=== PATIENT | male | born 1970 | race Caucasian/White ===

== ENCOUNTER 2019-02-11 22:19 | Inpatient (IN) | payer OTHER ==
[2019-02-11] MEDS ORDERED: SODIUM CHLORIDE 0.9% 500 ML INFUS.BAG IV ONE (22:33)
--- NOTE | 2019-02-11 22:43 | PDOC ---
History of Present Illness - General Chief Complaint: Weakness Stated Complaint: FEVER/WEAKNESS Time Seen by Provider: 02/11/19 22:43 History Source: Patient, Family, Significant Other - History of Present Illness Initial Comments: 02/12/19 01:25 Mr. Michelle is a 48 y/o [place]ander speaking man with hx pre-diabetes p/w acute onset fevers, diaphoresis, confusion. He is accompanied by his significant other and his daughter. They reports that yesterday he was his normal self, but began to complain of a sore throat overnight. They report that he was febrile at that time, but otherwise well appearing. Today they report that he appeared to acutely worsen, appearing diaphoretic and weak. While here in the ED they report that he became acutely confused, attempting to get out of bed while unable to verbalize why. He was unable to provide history secondary to AMS. 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 His family denies any similar episodes or illness in the past. They deny any known drug allergies. They deny any history of alcohol or drug use. Past History - Past Medical History Allergies/Adverse Reactions: Allergies Allergy/AdvReac Type Severity Reaction Status Date / Time No Known Allergies Allergy Verified 02/11/19 22:40 Home Medications: Ambulatory Orders No Home Medications 0 dose .ROUTE UTDICT 11/23/13 COPD: No - Psycho Social/Smoking Cessation Hx Smoking History: Never smoked Review of Systems - Review of Systems Able to Perform ROS?: No (AMS) *Physical Exam - Vital Signs Last Vital Signs Temp Pulse Resp BP Pulse Ox 101.1 F H 164 H 20 111/60 97 02/11/19 22:37 02/11/19 22:37 02/11/19 22:37 02/11/19 22:37 02/11/19 22:37 - Physical Exam Comments: 02/12/19 01:20 PE: GENERAL: Awake, diffusely diaphoretic. Disoriented to persons, place, and time, but responds incoherently to verbal stimulus. HEAD: No signs of trauma, normocephalic, atraumatic EYES: PERRLA, EOMI, sclera anicteric, conjunctiva clear ENT: Auricles normal inspection, hearing grossly normal, nares patent, oropharynx clear without exudates. Moist mucosa NECK: Normal ROM, supple, no lymphadenopathy, JVD, or masses LUNGS: No distress, speaks full sentences, clear to auscultation bilaterally HEART: Regular rate and rhythm, normal S1 and S2, no murmurs, rubs or gallops, peripheral pulses normal and equal bilaterally. ABDOMEN: Soft, nontender, normoactive bowel sounds. No guarding, no rebound. No masses EXTREMITIES : Normal inspection, Normal range of motion, no edema. No clubbing or cyanosis NEUROLOGICAL: No focal sensorimotor deficits SKIN: Diaphoretic, normal turgor, no rashes or lesions noted Procedures - Consent Consent obtained: Written - Lumbar Puncture Indication: Meningitis, AMS, Fever, Encephalitis CT Scan: Yes Betadine Prep: Yes Position: Left lateral decubitus Site: L3-L4 Local Anesthesia: 1% Lidocaine with epi Lumbar Puncture Kit: Adult Complications: other (unsuccessful) ED Treatment Course - LABORATORY CBC & Chemistry Diagram: 02/11/19 23:00 02/11/19 23:00 Medical Decision Making - Medical Decision Making 02/12/19 01:09 48M with hx prediabetes p/w acute onset fevers, diaphoresis, AMS, fever, tachycardia concerning for meningitis. Differential includes other sources of sepsis, including pneumonia, blood, urine. Plan: Sepsis order set: CBC CMP UA Urine culture CXR Cardiac profile EKG Blood cultures Lactate 1L IV NS Acetaminophen 1g Lumbar puncture Dispo: Admit --- Lactate - 6.9 --- LP discussed with family, reviewed risks and benefits of the procedure. Consent form signed for the LP. LP attempted alongside Dr. Garcia. Patient cleaned, draped appropriately, positioned in L decubitus, knees elevated with back arched forward and chin to chest. Space palpated at L4 region, site anesthetized with 1% lidocaine. Needle entered into spinal space, no return of CSF. Procedure attempted at space L3, no return of CSF. Plan for empiric antiviral and abx coverage. Patient microblogged for inpatient admission. Discharge - Discharge Information Problems reviewed: Yes Clinical Impression/Diagnosis: Delirium Sepsis Qualifiers: Sepsis type: sepsis due to unspecified organism Sepsis acute organ dysfunction status: unspecified Qualified Code(s): A41.9 - Sepsis, unspecified organism Condition: Guarded - Admission Yes - Follow up/Referral - Patient Discharge Instructions - Post Discharge Activity
--- NOTE | 2019-02-11 22:46 | PDOC ---
Attending Attestation - Resident Resident Name: Tate Francisco - ED Attending Attestation I have performed the following: I have examined & evaluated the patient, The case was reviewed & discussed with the resident, I agree w/resident's findings & plan - HPI HPI: 02/11/19 22:57 48 YOM with h/o prediabetes presenting with fever/AMS. yesterday night, +sore throat and fever worsening fever today, AMS/confusion, sweats, generalized weakness and malaise. PCP: Dr Ordonez 02/12/19 01:15 - Physicial Exam PE: 02/11/19 22:58 Agree with the resident's HPI and PE as documented in the electronic medical record. malaised appearing, disoriented (not oriented to person/time/place/situation), EOMI, PERRL, dry membranes. nl conjunctiva, anicteric; normal phonation, oropharynx clear. no exudates. neck supple. lungs clear,+tachycardic. abdomen soft nontender. Back nontender. WINN x4, no focal neuro deficits. No peripheral edema. normal color for ethnicity, WWP. no rash 02/12/19 01:16 02/12/19 17:05 - Critical Care Time Total Critical Care Time: 30 (sepsis, AMS) Critical Care Statement: The care of this patient involved high complexity decision making to prevent further life threatening deterioration of the patient 's condition and/or to evaluate & treat vital organ system(s) failure or risk of failure. - Medical Decision Making 02/11/19 22:45 See HPI for details. Prior notes reviewed, including admissions, discharges and consultations. Vital signs reviewed, +fever/tachycardia maintaining airway. Vital Signs Temp Pulse Resp BP Pulse Ox 101.1 F H 164 H 20 111/60 97 02/11/19 22:37 02/11/19 22:37 02/11/19 22:37 02/11/19 22:37 02/11/19 22:37 DDX bacteremia, meningitis, encephalitis, herpes, pna, UTI, dehydration, viral syndrome, ICH/BOOM MAN mass, electrolyte/metabolic derangements. laboratory results and imaging reviewed, basic labs and lytes wnl, notable for + lactic acidosis 6, will repeat after fluids. UA_unremarkable CXR_neg Cardiac panel_neg EKG sinus tachycardia at 123 bpm, narrow QRS, ST and T wave segments and morphology normal. Nonspecific T wave abnormalities - rate related CT head unremarkable, no acute bleed/mass strep/throat culture influenza/RSV pending ED course -interventions: IVF, hydration. attempted LP with resident, see note. unsuccessful, spinal space deeper than 3.5 inch needle did get in intervertebral space, but no CSF return no bleeding complications defer further attempts, as no long needle available. may need IR for CSF/tap in mean time, given possibility of meningitis/encephalitis, IV ceftriaxone/ vancomycin/valcyclovir administered blood and urine culture pending. VS rechecked, fever downtrending, tachy down admit to hospitalist service for sepsis/AMS/delirium, ?meningitis vs encephalitis, empirically treating. tele monitor s/o Dr Valera for symphony admission. 02/12/19 01:59 02/12/19 17:05
[2019-02-11] MEDS ORDERED: ACETAMINOPHEN 1000 MG/100 ML VIAL (NON FORMULARY) IVPB ONE (22:53)
[2019-02-11 23:06] LABS: VENOUS PH 7.46 (7.31-7.41)
[2019-02-11 23:07] LABS: BASO % 0.3 % (0-2.0); HEMATOCRIT 47.1 % (35.4-49); HEMOGLOBIN 16.4 GM/dL (11.7-16.9); LYMPH % 25.9 % (8-40); MCH 31.7 pg (25.7-33.7); MCHC 34.8 g/dl (32.0-35.9); MEAN CELL VOLUME 91.1 fl (80-96); MEAN PLT VOLUME 8.6 fl (7.5-11.1); MONO % 1.2 % (3.8-10.2); NEUT % 72.6 % (42.8-82.8); PLATELET COUNT 142 K/MM3 (134-434); RBC 5.17 M/mm3 (4.00-5.60); RDW 13.7 % (11.9-15.9); WHITE BLOOD COUNT 9.7 K/mm3 (4.0-10.0)
[2019-02-11] MEDS ORDERED: ACETAMINOPHEN INJECTION 100 ML IVPB ONE (23:10)
[2019-02-11 23:20] LABS: INR 1.3 (0.83-1.09); PROTHROMBIN TIME (PATIENT) 15.4 SEC (9.7-13.0)
[2019-02-11 23:22] LABS: ACTIVATED PTT 34.9 SECONDS (25.2-36.5)
[2019-02-11 23:39] LABS: ALBUMIN 3.6 g/dl (3.4-5.0); BILIRUBIN,TOTAL 2.3 mg/dL (0.2-1); BLOOD UREA NITROGEN 19.9 mg/dL (7-18); CALCIUM 8.5 mg/dL (8.5-10.1); CREATININE 1.8 mg/dL (0.55-1.3); TOT PROT 7.6 g/dl (6.4-8.2)
[2019-02-12] MEDS ORDERED: LIDOCAINE HCL 2% (20ML MULTI-DOSE VIAL) NR ONE (00:36)
[2019-02-12] MEDS ORDERED: ACYCLOVIR 500 MG (50MG/ML) VIAL IVPUSH ONE (01:05)
[2019-02-12] MEDS ORDERED: VANCOMYCIN HCL 2,000 MG in DEXTROSE 5%-WATER - 500 ML IVPB ONE (01:05)
[2019-02-12] MEDS ORDERED: ACYCLOVIR INJECTION 750 MG in DEXTROSE 5%-WATER - 250 ML IVPB ONE (01:30)
[2019-02-12] MEDS ORDERED: cefTRIAXone 2 GM/100 ML BAG (PRE-DOCKED) IVPB ONE (01:30)
[2019-02-12] MEDS ORDERED: SODIUM CHLORIDE 0.9% 500 ML INFUS.BAG IV ONE (01:40)
--- NOTE | 2019-02-12 03:01 | PN ---
Teaching Attending Note Name of Resident: Priyanka Villa ATTENDING PHYSICIAN STATEMENT I saw and evaluated the patient. I reviewed the resident's note and discussed the case with the resident. I agree with the resident's findings and plan as documented. SUBJECTIVE: 48 y/o male from [place] with DM, uncontrolled hyperglycemia c/o fever, chills x1 day, mentioned left neck pain which has been worsening for the several days. He denied any sick contacts, recent travels. He reports dental cleaning procedure about 5 months ago. Denied an invasive procedures such as drilling or tooth extraction. Pt denied any photophobia or photophonia. There was some concern that was confused in ER and LP was attempted unsuccessfully. He received empiric rx for menignitis/encephalitis - vanco, ceftriaxone, acyclovir. OBJECTIVE: Last Vital Signs Temp Pulse Resp BP Pulse Ox 99.0 F 101 H 20 102/69 96 02/12/19 02:29 02/12/19 02:29 02/11/19 23:36 02/12/19 02:29 02/12/19 02:32 general- nontoxic heent- possible uvula deviation to right, left sided erythema neck -exquisite tenderness on left neck, unable to bend head forward due to neck tenderness cv-s1+s2+rrr chest clear abdomen soft ext- no pedal edema neuro -negative meningeal signs- sammy castorena (-) Abnormal Lab Results 02/11/19 02/11/19 02/11/19 23:00 23:00 23:00 Monocytes % 1.2 L D PT with INR INR VBG pH POC VBG pCO2 VBG HCO3 VBG O2 Sat (Johny) VBG Base Excess Carbon Dioxide 17 L BUN 19.9 H Creatinine 1.8 H Random Glucose 209 H Lactic Acid 6.9 H* Total Bilirubin 2.3 H AST 57 H ALT 70 H Urine Protein Urine Ketones Urine Blood Urine Bilirubin 02/11/19 02/11/19 02/12/19 23:00 23:00 00:00 Monocytes % PT with INR 15.40 H INR 1.30 H VBG pH 7.46 H POC VBG pCO2 24.0 L VBG HCO3 16.7 L VBG O2 Sat (Johny) 86.9 H VBG Base Excess -4.8 L Carbon Dioxide BUN Creatinine Random Glucose Lactic Acid Total Bilirubin AST ALT Urine Protein 2+ H Urine Ketones Trace H Urine Blood 3+ H Urine Bilirubin 1+ H 02/12/19 01:28 Monocytes % PT with INR INR VBG pH POC VBG pCO2 VBG HCO3 VBG O2 Sat (Johny) VBG Base Excess Carbon Dioxide BUN Creatinine Random Glucose Lactic Acid 2.4 H* Total Bilirubin AST ALT Urine Protein Urine Ketones Urine Blood Urine Bilirubin imaging studies reviewed ASSESSMENT AND PLAN: 48yo man with severe sepsis, high fever, tachycardia, high lactic acidosis, transaminitis, HAGMA. Due to unilaterally tender neck I suspect possible submandibular abscess. DOcumented AMS, suspected meningeal involvement in ER. Unable to perform CT of neck with contrast due to GERALD. Unsuccessful LP attempt. Possible meningitis however on my exam not suggestive. Patient seemed to have improved clinically with empiric antimicrobial therapy. GERALD etiology may be from sepsis itself. Lactic acidosis improved after fluids and antibiotics. DM with severe uncontrolled hyperglycemia. UA showed 2+ protein, 3+ blood 1+ bilirubin. -admit to med/surg -monitor VS closely -blood cultures -ua, urine culture -esr, crp -respiratory viral mutliplex pcr panel -c/w ceftriaxone, vancomcyin, acyclovir for now -would add metronidazole to cover anaerobes -IV fluid hydration -renal u/s -liver u/s -once renal function improves, obtain CT of neck soft tissues with contrast -trend lactic acid -tight glucose control - novolog sliding scale, lantus insulin -a1c -may reattempt LP -ID evaluation -repeat UA -DVT ppx
--- NOTE | 2019-02-12 03:07 | HP ---
CHIEF COMPLAINT: fever, throat pain HISTORY OF PRESENT ILLNESS: Mr. Michelle is a 48 y/o male with pre-diabetes who presents with fever, chills, and left neck/throat pain. He reports new onset left side anterior neck and throat pain began the morning of presentation along with temp of 100.0. The pain is 7/10. He has associated dysphagia. He took Tylenol and 2 antibiotics from previous prescriptions (unsure of names) during the day and did not have improvement. Around 10:00pm, patient reports sudden onset of extreme chills that prompted him to present to the ED. He denies headache, dizziness, posterior neck pain, hearing loss, vision changes, nausea, or vomiting. Patient became disoriented in the ED. 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 Lives with . Allergies No Known Allergies Allergy (Verified 02/11/19 22:40) HOME MEDICATIONS: Home Medications Medication Instructions Recorded No Home Medications 0 dose .ROUTE UTDICT 11/23/13 REVIEW OF SYSTEMS CONSTITUTIONAL: Present: fever, chills, diaphoresis, generalized weakness Absent: loss of appetite, weight change HEENT: Present: throat pain, difficulty swallowing Absent: rhinorrhea, nasal congestion, mouth swelling, ear pain, eye pain, visual changes CARDIOVASCULAR: Absent: chest pain, syncope RESPIRATORY: Absent: cough, shortness of breath, wheezing GASTROINTESTINAL: Absent: abdominal pain, nausea, vomiting GENITOURINARY: Absent: dysuria MUSCULOSKELETAL: Absent: myalgia, back pain, neck pain SKIN: Absent: rash, itching, pallor HEMATOLOGIC/IMMUNOLOGIC: Absent: easy bleeding, easy bruising, lymphadenopathy, frequent infections ENDOCRINE: Absent: unexplained weight gain, unexplained weight loss, heat intolerance, cold intolerance NEUROLOGIC: Present: mental status change Absent: headache, focal weakness or paresthesias, dizziness, unsteady gait, seizure, bladder or bowel incontinence PSYCHIATRIC: Absent: anxiety, depression, suicidal or homicidal ideation, hallucinations. PHYSICAL EXAMINATION Vital Signs - 24 hr 02/11/19 02/11/19 02/12/19 22:37 23:36 00:56 Temperature 101.1 F H 100.1 F H Pulse Rate 164 H Pulse Rate [ 102 H Apical] Respiratory 20 20 Rate Blood Pressure 111/60 Blood Pressure 105/61 [Left Arm] O2 Sat by Pulse 97 98 Oximetry (%) 02/12/19 02/12/19 02:29 02:32 Temperature 99.0 F Pulse Rate Pulse Rate [ 101 H Apical] Respiratory Rate Blood Pressure Blood Pressure 102/69 [Left Arm] O2 Sat by Pulse 96 Oximetry (%) GENERAL: Awake, alert, and oriented to person, place, and year (not month), in no acute distress. HEAD: Normal with no signs of trauma. EYES: Pupils equal, round and reactive to light, extraocular movements intact, sclera anicteric, conjunctiva clear. No lid lag. EARS, NOSE, THROAT: Ears normal, nares patent, moist mucous membranes. NECK: Normal range of motion, left anterior cervical fullness LUNGS: Breath sounds equal, clear to auscultation bilaterally. No wheezes, and no crackles. No accessory muscle use. HEART: Tachycardic and regular rhythm, normal S1 and S2 without murmur, rub or gallop. ABDOMEN: Soft, nontender, not distended, normoactive bowel sounds, no guarding, no rebound, no masses. MUSCULOSKELETAL: Normal range of motion at all joints. No bony deformities or tenderness. UPPER EXTREMITIES: 2+ pulses, warm, well-perfused. No cyanosis. No clubbing. No peripheral edema. LOWER EXTREMITIES: 2+ pulses, warm, well-perfused. No calf tenderness. No peripheral edema. NEUROLOGICAL: Cranial nerves II-XII intact. Normal speech. PSYCHIATRIC: Cooperative. Good eye contact. Appropriate mood and affect. SKIN: Warm, dry, normal turgor, no rashes or lesions noted, normal capillary refill. Laboratory Results - last 24 hr 02/11/19 02/11/19 02/11/19 23:00 23:00 23:00 WBC 9.7 RBC 5.17 Hgb 16.4 Hct 47.1 D MCV 91.1 MCH 31.7 MCHC 34.8 RDW 13.7 Plt Count 142 D MPV 8.6 Absolute Neuts (auto) 7.0 Neutrophils % 72.6 D Lymphocytes % 25.9 D Monocytes % 1.2 L D Eosinophils % 0.0 D Basophils % 0.3 Nucleated RBC % 0 PT with INR INR PTT (Actin FS) Cancelled VBG pH POC VBG pCO2 POC VBG pO2 VBG HCO3 VBG O2 Sat (Johny) VBG Base Excess Sodium Potassium Chloride Carbon Dioxide Anion Gap BUN Creatinine Est GFR (CKD-EPI)AfAm Est GFR (CKD-EPI)NonAf Random Glucose Lactic Acid Calcium Total Bilirubin AST ALT Alkaline Phosphatase Troponin I < 0.02 Total Protein Albumin Influenza A (Rapid) Influenza B (Rapid) RSV Rapid Group A Strep Rapid 02/11/19 02/11/19 02/11/19 23:00 23:00 23:00 WBC RBC Hgb Hct MCV MCH MCHC RDW Plt Count MPV Absolute Neuts (auto) Neutrophils % Lymphocytes % Monocytes % Eosinophils % Basophils % Nucleated RBC % PT with INR 15.40 H INR 1.30 H PTT (Actin FS) 34.9 VBG pH POC VBG pCO2 POC VBG pO2 VBG HCO3 VBG O2 Sat (Johny) VBG Base Excess Sodium 136 Potassium 4.0 Chloride 105 Carbon Dioxide 17 L Anion Gap 15 BUN 19.9 H Creatinine 1.8 H Est GFR (CKD-EPI)AfAm 50.10 Est GFR (CKD-EPI)NonAf 43.23 Random Glucose 209 H Lactic Acid 6.9 H* Calcium 8.5 Total Bilirubin 2.3 H AST 57 H ALT 70 H Alkaline Phosphatase 101 Troponin I Total Protein 7.6 Albumin 3.6 Influenza A (Rapid) Influenza B (Rapid) RSV Rapid Group A Strep Rapid 02/11/19 02/12/19 02/12/19 23:00 01:28 01:48 WBC RBC Hgb Hct MCV MCH MCHC RDW Plt Count MPV Absolute Neuts (auto) Neutrophils % Lymphocytes % Monocytes % Eosinophils % Basophils % Nucleated RBC % PT with INR INR PTT (Actin FS) VBG pH 7.46 H POC VBG pCO2 24.0 L POC VBG pO2 No Result Required. VBG HCO3 16.7 L VBG O2 Sat (Johny) 86.9 H VBG Base Excess -4.8 L Sodium Potassium Chloride Carbon Dioxide Anion Gap BUN Creatinine Est GFR (CKD-EPI)AfAm Est GFR (CKD-EPI)NonAf Random Glucose Lactic Acid 2.4 H* Calcium Total Bilirubin AST ALT Alkaline Phosphatase Troponin I Total Protein Albumin Influenza A (Rapid) Influenza B (Rapid) RSV Rapid Group A Strep Rapid Negative 02/12/19 02/12/19 01:48 01:48 WBC RBC Hgb Hct MCV MCH MCHC RDW Plt Count MPV Absolute Neuts (auto) Neutrophils % Lymphocytes % Monocytes % Eosinophils % Basophils % Nucleated RBC % PT with INR INR PTT (Actin FS) VBG pH POC VBG pCO2 POC VBG pO2 VBG HCO3 VBG O2 Sat (Johny) VBG Base Excess Sodium Potassium Chloride Carbon Dioxide Anion Gap BUN Creatinine Est GFR (CKD-EPI)AfAm Est GFR (CKD-EPI)NonAf Random Glucose Lactic Acid Calcium Total Bilirubin AST ALT Alkaline Phosphatase Troponin I Total Protein Albumin Influenza A (Rapid) Negative Influenza B (Rapid) Negative RSV Rapid Negative Group A Strep Rapid ASSESSMENT/PLAN: Mr. Michelle is a 48 y/o male with pre-diabetes who presents with fever, chills, and throat/neck pain x 1 day. He became altered in the ED. No sick contacts or recent travel. #sepsis Pt tachycardic and febrile. LA 6.9 improved to 2.4 with IV bolus. No leukocytosis. Pt became altered in ED. LP attempted in ED but was unable to get CSF. UA negative for leuk esterase and nitrites. Flu, strep, and RSV negative. Empirically treated in ED with vanc, acyclovir, and ceftriaxone for meningitis vs encephalitis. Flagyl treatment for likely throat abscess. -CT neck soft tissue when Cr improves -CXR and head CT pending -blood and urine cultures pending -obtain LP -ID consult -Flagyl -Tylenol -CBC -repeat LA -ESR -CRP -droplet precautions- can be d/c'ed after meningitis r/o #high AG metabolic acidosis 2/2 lactic acidosis from sepsis AG 15. #GERALD 2/2 sepsis, possibly also intra-renal or post-renal Cr 1.8. Unsure of baseline. -hydrate NS 125mL/hr -repeat labs -renal U/S -limit use of nephrotoxic agents- will need contrast for CT when Cr improves #hyperglycemia Hx of pre-diabetes. BG at presentation 209. -HbA1C -SSI and BGMs -diabetic diet #hyperbilirubinemia 2.3. Abdominal exam benign. Pt also has transaminitis. -liver U/S #transaminitis Mildly elevated AST and ALT -consider repeating labs, abd U/S FEN NS 125mL/hr monitor Cr diabetic diet DVT Ppx SCDs-holding chemical AC in case of procedure Dispo med/surg with droplet precautions Visit type - Emergency Visit Emergency Visit: Yes ED Registration Date: 02/12/19 Care time: The patient presented to the Emergency Department on the above date and was hospitalized for further evaluation of their emergent condition. - New Patient This patient is new to me today: Yes Date on this admission: 02/12/19 - Critical Care Critical Care patient: No ATTENDING PHYSICIAN STATEMENT I saw and evaluated the patient. I reviewed the resident's note and discussed the case with the resident. I agree with the resident's findings and plan as documented. SUBJECTIVE: OBJECTIVE: ASSESSMENT AND PLAN:
[2019-02-12] MEDS ORDERED: ACETAMINOPHEN 325 MG TABLET (FP) PO PRN (03:26)
[2019-02-12] MEDS ORDERED: SODIUM CHLORIDE 1,000 ML IV SCH ×2 (03:30→03:52)
[2019-02-12 03:33] LABS: EPI CELLS 8.7 /HPF (0-5/HPF); HYALINE CASTS 30 /lpf (0-8); PH,URINE 5.5 (5.0-8.0); URINE APPEARANCE CLEAR; URINE BACTERIA 0.8 /hpf (NEGATIVE); URINE BILIRUBIN 1+ (NEGATIVE); URINE COLOR DK YELLOW; URINE GLUCOSE (UA) TRACE (NEGATIVE); URINE KETONE TRACE (NEGATIVE); URINE LEUK ESTERASE NEGATIVE (NEGATIVE); URINE NITRITE NEGATIVE (NEGATIVE); URINE PROTEIN 2+ (NEGATIVE); URINE RBC 9 /hpf (0-4); URINE WBC 9 /hpf (0-5)
[2019-02-12 04:59] VITALS: BMI 26.9
[2019-02-12] MEDS: INSULIN SLIDING SCALE (NOVOLOG) 1 VIAL SQ SCH ×2 (06:29→18:11)
--- NOTE | 2019-02-12 09:51 | EKG ---
Test Reason : Blood Pressure : / mmHG Vent. Rate : 123 BPM Atrial Rate : 123 BPM P-R Int : 140 ms QRS Dur : 086 ms QT Int : 306 ms P-R-T Axes : 041 101 036 degrees QTc Int : 438 ms SINUS TACHYCARDIA RIGHTWARD AXIS NO PREVIOUS ECGS AVAILABLE Confirmed by PALOMA VILLAFUERTE MD ([id number]) on 02/12/2019 9:50:57 AM Referred By: Confirmed By:PALOMA VILLAFUERTE MD
--- NOTE | 2019-02-12 10:04 | PN ---
Progress Note (short form) - Note Progress Note: ID consult dictated imp/reccd soft tissue neck infection diabetes (new diagnosis) GERALD abnl LFTs no recent antibiotics no hospitalizations onset of severe throat pain left side on fever to 102 and confusion yesterday came to ed LP attempted unsuccessfully given vanco/ceftriaxone/flagyl/acyclovir early this am no signs meningitis he has continued left sided throat pain and pain on opening his mouth and eating good dentition, no drooling, no stridor, no neck pain on exam has swelling in the left retropharyngeal space and submandibular area today's labs are all pending r/o deep seated neck infection. r/o lemierre's syndrome NEEDS ENT EVALUATION ct scan of neck is ordered, duplex/us of the left neck head ct results pending rapid strep negative can d/c isolation no need for LP check vanco level in am and redose per level rocephin/flagyl to continue vanco/rocephin/flagyl for now if ENT cannot see him here he needs to be transferred thank you D/[facility] service Problem List - Problems (1) Sepsis Code(s): A41.9 - SEPSIS, UNSPECIFIED ORGANISM Qualifiers: Sepsis type: sepsis due to unspecified organism Sepsis acute organ dysfunction status: unspecified Qualified Code(s): A41.9 - Sepsis, unspecified organism (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
--- NOTE | 2019-02-12 11:02 | CONS ---
INFECTIOUS DISEASE CONSULTATION DATE OF CONSULTATION: 02/12/2019 REQUESTING PHYSICIAN: The hospitalist service. This is a 48-year-old man who has no past medical history. He has been living in the for 14 years. He is originally from [place]. He lives with his and daughter. On , he developed a left-sided sore throat with some fever. On Thursday , he had high-grade fever and confusion, and he was brought to the emergency room. He had discomfort on swallowing. Due to the confusion, he had chills, he had had no headache, due to the symptoms, he came to the emergency room where a LP was attempted and unsuccessful. He had a temperature of 101.1 in the ER. He was given vancomycin, ceftriaxone, and acyclovir in the emergency room. Flagyl was added by the admitting team. On further conversation, he reported these symptoms had been present for 2 days. This morning, he is completely awake and alert. He has no confusion. He does continue to complain of left-sided throat pain and jaw pain. PAST MEDICAL HISTORY: Unremarkable. MEDICATIONS: He takes no medications as an outpatient. PAST SURGICAL HISTORY: Notable for nasal fracture repair. He has not traveled recently. SOCIAL HISTORY: He is originally from [place]. He has been here for 14 years. He lives with his and daughter. 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 There is no history of any alcohol or substance use. REVIEW OF SYSTEMS: He denies any prior antibiotic use. He had a dental cleaning 5 months ago. He has no dental pain. He has no headache. He has no nausea, vomiting, diarrhea, or dysuria. ALLERGIES: He has no known drug allergies. MEDICAL CARE: His medical care is with Milagros Koch MD, at [address] [place] [address]. PHYSICAL EXAMINATION: General: He is awake and alert. He is following commands. He is oriented x3. Vital Signs: Temperature is 98.6, pulse of 91, blood pressure 91/59, respiratory rate is 18, saturating 99% on room air. HEENT: He is normocephalic. His eyes are anicteric. On oropharyngeal exam, he has left-sided retropharyngeal swelling as well as submandibular pain. Neck: Supple. Heart: Regular rate and rhythm. Lungs: Clear to auscultation. Abdomen: Soft, nontender. Skin: He has no rash. Neurologic: He is following commands, and he is alert and oriented x3. LABORATORY DATA: White count is 9.7 from last night; hemoglobin 16.4; platelets are 142. INR is 1.3. BUN is 19 and creatinine 1.8. His lactic acid was 6.9, repeated at 2.4. Total bilirubin of 2.3 with an AST of 57, ALT of 70. Urinalysis has no leukocyte esterase, 3+ blood with trace ketones and 2+ protein. A rapid RSV was done in the ER; that is negative as well as influenza. Group A strep rapid test was negative. Urine, blood, and throat cultures are pending. Chest x-ray was done in the emergency room; for which, they said this was a weak inspiration. They recommended a PA and lateral. Head CT has been done, but the results are not available. He had a kidney and abdominal ultrasound that was notable for fatty liver versus hepatocellular disease. He had a gallbladder polyp, and the kidneys were unremarkable. Spleen was unremarkable as well. In summary, this is a 48-year-old man who I was asked to see for possible meningitis. He has no signs to suggest meningitis. I suspect he may have a deep-seated neck infection. He needs ENT evaluation. CAT scan of the neck is ordered. We will obtain a duplex ultrasound of the left neck as well. Head CT results are pending. He has very good dentition; so, the source of this is not clear. We can stop his isolation. There is no need for LP. I would check a vancomycin level in the morning and re-dose based on the level. Would continue ceftriaxone and Flagyl. He has not been in the hospital. He has not been on antibiotics. There is nothing to suggest drug-resistant organisms. If ENT cannot see him here, he needs to be transferred. Thank you for this consultation. GRACE VACA M.D. [id number] MTDD
--- NOTE | 2019-02-12 11:10 | HOSP ---
Subjective - Review of Symptoms Subjective: c/o throat pain, odynophagia. was having fever with rigors at home. previous dental work was over 5 months ago and had dental cleaning at that time. denies CP, SOB, drooling, N/V/C/D Current Medications Generic Name Dose Route Start Last Admin Trade Name Freq PRN Reason Stop Dose Admin Acetaminophen 650 mg 02/12/19 03:26 Tylenol - PO Q4H PRN PAIN OR FEVER Metronidazole 500 mg in 100 mls @ 100 mls/hr 02/12/19 04:00 02/12/19 07:52 Flagyl 500mg Premixed Ivpb - IVPB Not Given Q8H-IV CLARA Sodium Chloride 1,000 mls @ 125 mls/hr 02/12/19 03:52 02/12/19 05:57 Normal Saline - IV 125 mls/hr ASDIR CLARA Administration Ceftriaxone Sodium 2 gm/ 100 mls @ 100 mls/hr 02/13/19 10:00 Dextrose IVPB DAILY CLARA Protocol Insulin Aspart 1 vial 02/12/19 07:00 02/12/19 06:29 Novolog Vial Sliding Scale - SQ 2 units BIDAC CLARA Administration Protocol Last Vital Signs Temp Pulse Resp BP Pulse Ox 98.4 F 92 H 18 110/62 99 02/12/19 09:00 02/12/19 09:00 02/12/19 09:00 02/12/19 09:00 02/12/19 09:00 General NAD HEENT L pharynx swelling with deviation of uvula. tender, no active drainage noted. teeth are intact with no obvious sores or lesions. + L throat tenderness no LN. no stridor A/P 48yo M with PMH DM presented to the ER with fever/chills/neck pain. was noted to be confused yesterday and concern for meningitis was raised, LP attempted but unsuccessful. 1. L pharyngeal abscess- low grade fever Physical Examination Vital Signs: Vital Signs Temperature 98.4 F 02/12/19 09:00 Pulse Rate 92 H 02/12/19 09:00 Respiratory Rate 18 02/12/19 09:00 Blood Pressure 110/62 02/12/19 09:00 O2 Sat by Pulse Oximetry (%) 99 02/12/19 09:00 Labs: CBC, BMP 02/11/19 23:00 02/11/19 23:00
[2019-02-12 12:10] LABS: BASO % 0.1 % (0-2.0); HEMATOCRIT 40.8 % (35.4-49); LYMPH % 6.3 % (8-40); MCH 31.7 pg (25.7-33.7); MCHC 34.4 g/dl (32.0-35.9); MEAN CELL VOLUME 92.1 fl (80-96); MEAN PLT VOLUME 8.6 fl (7.5-11.1); MONO % 3.3 % (3.8-10.2); NEUT % 90.3 % (42.8-82.8); PLATELET COUNT 96 K/MM3 (134-434); RBC 4.43 M/mm3 (4.00-5.60); WHITE BLOOD COUNT 19.2 K/mm3 (4.0-10.0)
--- NOTE | 2019-02-12 12:26 | DS ---
Physical Exam: SUBJECTIVE: Patient seen and examined. c/o throat pain with difficulty swallowing. denies CP, sob, fever, chills, n/V/C/D. had dental cleaning 5 months ago. no dental work since OBJECTIVE: Vital Signs Period Temp Pulse Resp BP Sys/Iyer Pulse Ox Last 24 Hr 98.4 F-101.1 F 91-164 18-20 89-111/59-69 96-99 PHYSICAL EXAM GENERAL: The patient is awake, alert, and fully oriented, in no acute distress. HEAD: Normal with no signs of trauma. EYES: PERRL, extraocular movements intact, sclera anicteric, conjunctiva clear. ENT: Ears normal, nares patent, L tonsillar swelling with uvula deviation. no active drainage noted. no oral ulcers or lesions. teeth intact. +L throat tenderness no stridor. no drooling NECK: Trachea midline, full range of motion, supple. LUNGS: Breath sounds equal, clear to auscultation bilaterally, no wheezes, no crackles, no accessory muscle use. HEART: Regular rate and rhythm, S1, S2 without murmur, rub or gallop. ABDOMEN: Soft, nontender, nondistended, normoactive bowel sounds, no guarding, no rebound, no hepatosplenomegaly, no masses. EXTREMITIES: 2+ pulses, warm, well-perfused, no edema. NEUROLOGICAL: Cranial nerves II through XII grossly intact. Normal speech, gait not observed. PSYCH: Normal mood, normal affect. SKIN: Warm, dry, normal turgor, no rashes or lesions noted. LABS Laboratory Results - last 24 hr 02/11/19 02/11/19 02/11/19 23:00 23:00 23:00 WBC 9.7 RBC 5.17 Hgb 16.4 Hct 47.1 D MCV 91.1 MCH 31.7 MCHC 34.8 RDW 13.7 Plt Count 142 D MPV 8.6 Absolute Neuts (auto) 7.0 Neutrophils % 72.6 D Lymphocytes % 25.9 D Monocytes % 1.2 L D Eosinophils % 0.0 D Basophils % 0.3 Nucleated RBC % 0 PT with INR INR PTT (Actin FS) Cancelled VBG pH POC VBG pCO2 POC VBG pO2 VBG HCO3 VBG O2 Sat (Johny) VBG Base Excess Sodium Potassium Chloride Carbon Dioxide Anion Gap BUN Creatinine Est GFR (CKD-EPI)AfAm Est GFR (CKD-EPI)NonAf POC Glucometer Random Glucose Lactic Acid Calcium Total Bilirubin AST ALT Alkaline Phosphatase Troponin I < 0.02 Total Protein Albumin Urine Color Urine Appearance Urine pH Ur Specific [place] Urine Protein Urine Glucose (UA) Urine Ketones Urine Blood Urine Nitrite Urine Bilirubin Urine Urobilinogen Ur Leukocyte Esterase Urine WBC (Auto) Urine RBC (Auto) Urine Casts (Auto) U Pathogenic Cast Auto U Epithel Cells (Auto) U Sm Round Cell (Auto) Urine Bacteria (Auto) Influenza A (Rapid) Influenza B (Rapid) RSV Rapid Group A Strep Rapid 02/11/19 02/11/19 02/11/19 23:00 23:00 23:00 WBC RBC Hgb Hct MCV MCH MCHC RDW Plt Count MPV Absolute Neuts (auto) Neutrophils % Lymphocytes % Monocytes % Eosinophils % Basophils % Nucleated RBC % PT with INR 15.40 H INR 1.30 H PTT (Actin FS) 34.9 VBG pH POC VBG pCO2 POC VBG pO2 VBG HCO3 VBG O2 Sat (Johny) VBG Base Excess Sodium 136 Potassium 4.0 Chloride 105 Carbon Dioxide 17 L Anion Gap 15 BUN 19.9 H Creatinine 1.8 H Est GFR (CKD-EPI)AfAm 50.10 Est GFR (CKD-EPI)NonAf 43.23 POC Glucometer Random Glucose 209 H Lactic Acid 6.9 H* Calcium 8.5 Total Bilirubin 2.3 H AST 57 H ALT 70 H Alkaline Phosphatase 101 Troponin I Total Protein 7.6 Albumin 3.6 Urine Color Urine Appearance Urine pH Ur Specific [place] Urine Protein Urine Glucose (UA) Urine Ketones Urine Blood Urine Nitrite Urine Bilirubin Urine Urobilinogen Ur Leukocyte Esterase Urine WBC (Auto) Urine RBC (Auto) Urine Casts (Auto) U Pathogenic Cast Auto U Epithel Cells (Auto) U Sm Round Cell (Auto) Urine Bacteria (Auto) Influenza A (Rapid) Influenza B (Rapid) RSV Rapid Group A Strep Rapid 02/11/19 02/12/19 02/12/19 23:00 00:00 01:28 WBC RBC Hgb Hct MCV MCH MCHC RDW Plt Count MPV Absolute Neuts (auto) Neutrophils % Lymphocytes % Monocytes % Eosinophils % Basophils % Nucleated RBC % PT with INR INR PTT (Actin FS) VBG pH 7.46 H POC VBG pCO2 24.0 L POC VBG pO2 No Result Required. VBG HCO3 16.7 L VBG O2 Sat (Johny) 86.9 H VBG Base Excess -4.8 L Sodium Potassium Chloride Carbon Dioxide Anion Gap BUN Creatinine Est GFR (CKD-EPI)AfAm Est GFR (CKD-EPI)NonAf POC Glucometer Random Glucose Lactic Acid 2.4 H* Calcium Total Bilirubin AST ALT Alkaline Phosphatase Troponin I Total Protein Albumin Urine Color Dk yellow Urine Appearance Clear Urine pH 5.5 D Ur Specific [place] 1.034 Urine Protein 2+ H Urine Glucose (UA) Trace Urine Ketones Trace H Urine Blood 3+ H Urine Nitrite Negative Urine Bilirubin 1+ H Urine Urobilinogen 1.0 Ur Leukocyte Esterase Negative Urine WBC (Auto) 9 Urine RBC (Auto) 9 Urine Casts (Auto) 30 U Pathogenic Cast Auto Seen U Epithel Cells (Auto) 8.7 U Sm Round Cell (Auto) None seen Urine Bacteria (Auto) 0.8 Influenza A (Rapid) Influenza B (Rapid) RSV Rapid Group A Strep Rapid 02/12/19 02/12/19 02/12/19 01:48 01:48 01:48 WBC RBC Hgb Hct MCV MCH MCHC RDW Plt Count MPV Absolute Neuts (auto) Neutrophils % Lymphocytes % Monocytes % Eosinophils % Basophils % Nucleated RBC % PT with INR INR PTT (Actin FS) VBG pH POC VBG pCO2 POC VBG pO2 VBG HCO3 VBG O2 Sat (Johny) VBG Base Excess Sodium Potassium Chloride Carbon Dioxide Anion Gap BUN Creatinine Est GFR (CKD-EPI)AfAm Est GFR (CKD-EPI)NonAf POC Glucometer Random Glucose Lactic Acid Calcium Total Bilirubin AST ALT Alkaline Phosphatase Troponin I Total Protein Albumin Urine Color Urine Appearance Urine pH Ur Specific [place] Urine Protein Urine Glucose (UA) Urine Ketones Urine Blood Urine Nitrite Urine Bilirubin Urine Urobilinogen Ur Leukocyte Esterase Urine WBC (Auto) Urine RBC (Auto) Urine Casts (Auto) U Pathogenic Cast Auto U Epithel Cells (Auto) U Sm Round Cell (Auto) Urine Bacteria (Auto) Influenza A (Rapid) Negative Influenza B (Rapid) Negative RSV Rapid Negative Group A Strep Rapid Negative 02/12/19 02/12/19 02/12/19 05:58 11:32 11:45 WBC 19.2 H RBC 4.43 Hgb 14.0 Hct 40.8 MCV 92.1 MCH 31.7 MCHC 34.4 RDW 14.0 Plt Count MPV 8.6 Absolute Neuts (auto) 17.4 H Neutrophils % 90.3 H Lymphocytes % 6.3 L D Monocytes % 3.3 L D Eosinophils % 0.0 Basophils % 0.1 Nucleated RBC % 0 PT with INR INR PTT (Actin FS) VBG pH POC VBG pCO2 POC VBG pO2 VBG HCO3 VBG O2 Sat (Johny) VBG Base Excess Sodium Potassium Chloride Carbon Dioxide Anion Gap BUN Creatinine Est GFR (CKD-EPI)AfAm Est GFR (CKD-EPI)NonAf POC Glucometer 183 141 Random Glucose Lactic Acid Calcium Total Bilirubin AST ALT Alkaline Phosphatase Troponin I Total Protein Albumin Urine Color Urine Appearance Urine pH Ur Specific [place] Urine Protein Urine Glucose (UA) Urine Ketones Urine Blood Urine Nitrite Urine Bilirubin Urine Urobilinogen Ur Leukocyte Esterase Urine WBC (Auto) Urine RBC (Auto) Urine Casts (Auto) U Pathogenic Cast Auto U Epithel Cells (Auto) U Sm Round Cell (Auto) Urine Bacteria (Auto) Influenza A (Rapid) Influenza B (Rapid) RSV Rapid Group A Strep Rapid HOSPITAL COURSE: Date of Admission:02/12/19 Date of Discharge: 02/12/19 Admitting diagnosis: Severe sepsis due to peritonsilar abscess, GERALD Pre hospital course 48 y/o male with pre-diabetes who presents with fever, chills, and left neck/ throat pain. He reports new onset left side anterior neck and throat pain began the morning of presentation along with temp of 100.0. The pain is 7/10. He has associated dysphagia. He took Tylenol and 2 antibiotics from previous prescriptions (unsure of names) during the day and did not have improvement. Around 10:00pm, patient reports sudden onset of extreme chills that prompted him to present to the ED. He denies headache, dizziness, posterior neck pain, hearing loss, vision changes, nausea, or vomiting. Patient became disoriented in the ED. Subsequent hospital course Admitted to medicine. concern in ER for meningitis and unsuccessful attempt at LP. started on meninigitis treatment with ceftriaxone/vanco/acyclovir and IVF. on exam noted to have large peritonislar abscess. abx switched to ceftriaxone/ flagyl. ID and ENT consulted. ENT not available for drainage. pt was transferred to [facility]. accepted by Dr Rita Robb. discussed with and daughters present at bedside. all questions answered. Minutes to complete discharge: 40 Discharge Summary Problems reviewed: Yes Reason For Visit: DELIRIUM, SEPSIS Current Active Problems Delirium (Acute) Sepsis (Acute) - Instructions Diet, Activity, Other Instructions: You are being transferred to [facility] since you would benefit from drainage of the abscess in your mouth and we are unable to do it here at this time Follow up recommendations per [facility]. Disposition: TRANSFER ACUTE CARE/OTHER HOSP - Home Medications Comprehensive Discharge Medication List: Ambulatory Orders No Home Medications 0 dose .ROUTE UTDICT 11/23/13 Prescription Drug Monitoring Program (I-STOP) results: I-STOP not reviewed Problem List - Problems (1) Abdominal pain Code(s): R10.9 - UNSPECIFIED ABDOMINAL PAIN This patient is new to me today: Yes Date on this admission: 02/12/19 Emergency Visit: Yes ED Registration Date: 02/12/19 Care time: The patient presented to the Emergency Department on the above date and was hospitalized for further evaluation of their emergent condition. Critical Care patient: No - Discharge Referral Referred to [facility] Med P.C.: No
[2019-02-12 12:46] LABS: ALBUMIN 2.9 g/dl (3.4-5.0); BILIRUBIN,TOTAL 1.3 mg/dL (0.2-1); BLOOD UREA NITROGEN 18.4 mg/dL (7-18); CALCIUM 7.8 mg/dL (8.5-10.1); POTASSIUM 4.3 mmol/L (3.5-5.1); TOT PROT 6.4 g/dl (6.4-8.2)
[2019-02-12 13:22] LABS: PLATELET ESTIMATE DECREASED
[2019-02-12] MEDS ORDERED: ONDANSETRON 4 MG/2 ML VIAL IVPUSH PRN (17:37)
[2019-02-12 18:47] VITALS: BP 109/68; PULSE 95; TEMP 100.1
[2019-02-13] MEDS ORDERED: CEFTRIAXONE 2 GM in DEXTROSE 5%-WATER 100 ML IVPB SCH (10:00)
--- NOTE | 2019-02-13 14:29 | HOSP ---
Subjective - Review of Symptoms Events since last encounter: Called [facility] and spoke with team taking care of patient. Updated team that blood cultures have grown back positive, pending organism. Will call back once organisms have specified. Patient doing well. Physical Examination Vital Signs: Vital Signs Temperature 100.1 F H 02/12/19 18:00 Pulse Rate 95 H 02/12/19 18:00 Respiratory Rate 18 02/12/19 18:00 Blood Pressure 109/68 02/12/19 18:00 O2 Sat by Pulse Oximetry (%) 99 02/12/19 09:00 Labs: CBC, BMP 02/12/19 11:45 02/12/19 11:45 Visit type - Emergency Visit Emergency Visit: No - New Patient This patient is new to me today: Yes Date on this admission: 02/13/19 - Critical Care Critical Care patient: No
--- NOTE | 2019-02-14 17:27 | PN ---
Progress Note (short form) - Note Progress Note: Contacted [facility](Dr Anna) and reported BCX growing fusobacterium
== END 2019-02-12 20:05 | disposition short-term general hospital (02) | DRG 720 ==
LOC: SUPCPDRO 22:19 → JER 22:19 → JERBED 02-12 01:39 → J5S 02-12 04:16
PROVIDERS: ADMIT Internal Medicine; ATTEND Internal Medicine
PROC: 009U3ZZ Drainage of Spinal Canal, Percutaneous Approach (ICD-10-PCS; principal; 2019-02-11)
PROC: B01BZZZ Fluoroscopy of Spinal Cord (ICD-10-PCS; 2019-02-11)
DX: A41.89 Other specified sepsis (principal); R65.20 Severe sepsis without septic shock; J36 Peritonsillar abscess; R13.10 Dysphagia, unspecified; R73.03 Prediabetes; R41.82 Altered mental status, unspecified; R00.0 Tachycardia, unspecified; N17.9 Acute kidney failure, unspecified; E87.2 Acidosis; E80.6 Other disorders of bilirubin metabolism; G03.8 Meningitis due to other specified causes
CPT/HCPCS: 36415; 70450-TC; 71045-TC-FY; 76705-TC; 76775-TC; 80053; 81003; 82803; 82962; 83605; 84484; 85025; 85610; 85730; 86140; 87040; 87070; 87076; 87086; 87389; 87804; 87807; 87880; 93005; 93010; 93971; 99285-25; J0131; J7030